=== PATIENT | male | born 1960 | race Caucasian/White ===

== ENCOUNTER 2022-12-14 12:07 | Emergency (ER) | payer MEDICAID ==
[~2022-12-14] VITALS: Ht 185.4 cm; Wt 100.0 kg
[~2022-12-14 12:07] MED LIST: ASPI-1160 PO; CLOP-31 PO; LIP40 PO; SPIR25TA PO
[2022-12-14 12:35] VITALS: TEMP 98.6; O2SAT 98
[2022-12-14] MEDS ORDERED: LIDO700A15 TP (13:34)
[2022-12-14] MEDS ORDERED: METH-653 MT (13:34)
[2022-12-14 13:45] VITALS: BP 120/85; PULSE 70; RESP 18
[2022-12-14] MEDS ORDERED: KETOROLAC 30MG/ML VIAL IM ONE (13:45)
== END 2022-12-14 14:30 | disposition home or self-care (01) ==
LOC: ER 12:07
DX: M54.50 Low back pain, unspecified (principal); I10 Essential (primary) hypertension; E78.00 Pure hypercholesterolemia, unspecified
CPT/HCPCS: 99283; 96372; J1885